=== PATIENT | female | born 1945 | race Caucasian/White ===

== ENCOUNTER → 2017-04-16 | Outpatient (CLI) | payer BC, MEDICARE ==
[2017-04-16 16:34] LABS: RBC, Body Fluid 7750 /uL
== END | disposition home or self-care (01) ==
LOC: LABWHC1 14:29
PROVIDERS: ATTEND Orthopaedic Surgery
DX: M25.462 Effusion, left knee (principal); Z96.652 Presence of left artificial knee joint
CPT/HCPCS: 36415; 85652; 86140; 87070; 87075; 87205; 89050

== ENCOUNTER → 2019-03-10 | Outpatient (CLI) | payer MEDICARE ==
[2019-03-10 12:15] LABS: Basophils % (A) 1 %; Eosinophils # (A) 0.1 k/uL (0-0.7); Eosinophils % (A) 2 %; HCT 37.8 % (34.0-46.0); HGB 12.2 gm/dL (11.4-16.0); Lymphocytes # (A) 1.8 k/uL (1.0-4.8); Lymphocytes % (A) 25 %; MCH 30.2 pg (25.0-35.0); MCHC 32.3 g/dL (31.0-37.0); MCV 93.4 fL (80.0-100.0); Mean Platelet Volume 6.7; Monocytes # (A) 0.4 k/uL (0-1.0); Monocytes % (A) 6 %; Neutrophils # (A) 4.8 k/uL (1.3-7.7); Neutrophils % (A) 66 %; Platelet Count 389 k/uL (150-450); RBC 4.05 m/uL (3.80-5.40); RDW 13.1 % (11.5-15.5); WBC 7.4 k/uL (3.8-10.6)
[2019-03-10 13:43] LABS: Erythrocyte Sedimentation Rate 63 mm/hr (0-20)
== END | disposition home or self-care (01) ==
LOC: LABWHC1 11:17
PROVIDERS: ATTEND Orthopaedic Surgery
DX: M25.562 Pain in left knee (principal); M25.462 Effusion, left knee; Z48.89 Encounter for other specified surgical aftercare; Z96.652 Presence of left artificial knee joint
CPT/HCPCS: 36415; 85025; 85652; 86140